=== PATIENT | male | born 1985 | race African-American/Black ===

== ENCOUNTER 2017-05-18 01:36 | Emergency (ER) | payer SELFPAY ==
[~2017-05-18] VITALS: Ht 165.1 cm; Wt 59.0 kg
[2017-05-18 01:49] VITALS: BP 88/54; PULSE 64; RESP 14; TEMP 97.6; O2SAT 99
--- NOTE | 2017-05-18 03:17 | PD ---
HPI Chief Complaint: Laceration/Skin Injury Time Seen by Provider: 03:08 Travel History International Travel<30 days: No Contact w/Intl Traveler<30days: No Traveled to known affect area: No History of Present Illness HPI The patient is a 32-year-old [id number] male that approximately at 1230 tonight tripped and fell and lacerated his right hand on oysters. These were live oysters in salt water. He does not recall his last tetanus shot, it could have been over 10 years ago. [facility] Past Medical History Medical History: Denies Significant Hx Tetanus Vaccination: Unknown Influenza Vaccination: No ?: Not Past Surgical History Surgical History: No Previous Surgery Social History Alcohol Use: Yes Tobacco Use: Yes Substance Use: Yes (MARIJUANA) Allergies-Medications (Allergen,Severity, Reaction): Coded Allergies: No Known Allergies (Verified Allergy, Unknown, 05/18/17) Reported Meds & Prescriptions Reported Meds & Active Scripts Active No Active Prescriptions or Reported Medications Review of Systems Except as stated in HPI: all other systems reviewed are Neg Physical Exam Narrative GENERAL: Well-nourished, well-developed patient in moderate apparent distress with his right hand discomfort. His vital signs show blood pressure 88/54 but are otherwise normal. SKIN: Focused skin assessment warm/dry. There is a 2 cm laceration on the ulnar aspect of his hand about 2 cm proximal to the fifth metacarpal. The patient has good capillary refill and pinprick sensation on the fifth finger. HEAD: Normocephalic. EYES: No scleral icterus. No injection or drainage. NECK: Supple, trachea midline. No JVD or lymphadenopathy. CARDIOVASCULAR: Regular rate and rhythm without murmurs, gallops, or rubs. RESPIRATORY: Breath sounds equal bilaterally. No accessory muscle use. GASTROINTESTINAL: Abdomen soft, non-tender, nondistended. MUSCULOSKELETAL: No cyanosis, or edema. BACK: Nontender without obvious deformity. No CVA tenderness. Data Data Last Documented VS Vital Signs Date Time Temp Pulse Resp B/P (MAP) Pulse Ox O2 Delivery O2 Flow Rate FiO2 05/18/17 02:11 18 05/18/17 01:49 97.6 64 88/54 (65) 99 MDM Medical Decision Making Medical Screen Exam Complete: Yes Emergency Medical Condition: Yes Medical Record Reviewed: Yes Differential Diagnosis Contaminated laceration, laceration needing suturing, minor laceration Narrative Course The patient has a contaminated laceration. It will be left open and the wound dressed. He will get 7 days off of work. He needs to keep his hand clean and dry. He will be given Cipro and Bactrim antibiotics. Diagnosis Primary Impression: Laceration of hand Additional Instructions: Both the antibiotics are taken twice daily for 10 days. Elevate your and above your heart. Return immediately if you think it is infected. Follow-up with a hand surgeon. Next week. Scripts No Active Prescriptions or Reported Meds Genaro Masterson MD May 18, 2017 03:17
[2017-05-18] MEDS ORDERED: CIPR-9 PO (03:19)
[2017-05-18] MEDS ORDERED: BACT800T5 PO (03:19)
[2017-05-18] MEDS ORDERED: TETANUS/DIPHTHERIA TOXOID ADULT 0.5 ML VIAL IM ONE (03:30)
[2017-05-18] MEDS ORDERED: CIPROFLOXACIN 500 MG TAB PO ONE (03:30)
[2017-05-18] MEDS ORDERED: SULFAMETHOXAZOLE-TRIMETHOPRIM DS 800-160 MG TAB PO ONE (03:30)
== END 2017-05-18 03:38 | disposition home or self-care (01) ==
LOC: PHED 01:36
DX: S61.411A Laceration without foreign body of right hand, initial encounter (principal); Z23 Encounter for immunization; W26.8XXA Contact with other sharp object(s), not elsewhere classified, initial encounter; Z72.0 Tobacco use
CPT/HCPCS: 90471; 90714